=== PATIENT | female | born 1965 | race Two or more races ===

== ENCOUNTER 2021-06-11 09:00 | Inpatient (IN) | payer SELFPAY ==
[~2021-06-11] VITALS: Ht 162.6 cm; Wt 60.7 kg
[2021-06-11 09:35] LABS: Basophils # (auto) 0.1 10 ^3/uL (0-0.2); Basophils % (auto) 0.4 % (0.0-2.0); Eosinophils # (auto) 0 10 ^3/uL (0-0.8); Eosinophils % (auto) 0.1 % (0.0-7.0); Hematocrit 40.9 % (36.0-46.0); Hemoglobin 13.9 g/dL (12.2-16.2); Lymphocytes # (auto) 1.3 10 ^3/uL (0.4-5.4); Mean Corpuscular Hemoglobin 29.3 pg (28.0-32.0); Mean Corpuscular Volume 86.3 fL (80.0-100.0); Monocytes # (auto) 0.7 10 ^3/uL (0-1.3); Neutrophils # (auto) 12.4 10 ^3/uL (1.6-8.6); Neutrophils % (auto) 85.5 % (37.0-80.0); Red Blood Cells 4.75 10^6/uL (4.0-5.20); Red Cell Distribution Width 13.2 % (11.8-14.3); White Blood Cell 14.5 10^3/uL (4.4-10.8)
[2021-06-11 09:43] LABS: Calcium 9.8 mg/dL (8.5-10.1); Potassium 3.8 mmol/L (3.5-5.1)
[2021-06-11 09:47] LABS: BUN/Creatinine Ratio 14.5; Bilirubin, Total 0.8 mg/dL (0.2-1.0); Total Protein 8.1 g/dL (6.4-8.2)
[2021-06-11] MEDS ORDERED: cefTRIAXone 1GM/50ML D5W 50 ML IV ONE (11:45)
[2021-06-11] MEDS ORDERED: metroNIDAZOLE 500MG/100ML 100 ML IV ONE (11:45)
[2021-06-11] MEDS ORDERED: ONDANSETRON HCL 4 MG/2 ML VIAL IV ONE (13:15)
[2021-06-11] MEDS ORDERED: GOLYTELY 4L KIT PO ONE (13:45)
[2021-06-11] MEDS ORDERED: NITROGLYCERIN 0.4 MG SL TAB SL PRN (15:30)
[2021-06-11] MEDS ORDERED: MORPHINE SULFATE INJECTION 2 MG/2 ML SYRG IV PRN ×2 (15:30→17:00)
[2021-06-11] MEDS ORDERED: SODIUM CHLORIDE 0.9% 2,000 ML IV ONE (15:30)
[2021-06-11] MEDS ORDERED: CHOL20009 PO (15:42)
[2021-06-11] MEDS ORDERED: CIME1TAB7 PO (15:42)
[2021-06-11] MEDS ORDERED: CALC-179 PO (15:42)
[2021-06-11] MEDS ORDERED: ONDANSETRON HCL 4 MG/2 ML VIAL IV PRN (17:00)
[2021-06-11] MEDS ORDERED: DOCUSATE SOD 100 MG CAP PO PRN (17:00)
[2021-06-11] MEDS ORDERED: LORazepam 0.5 MG TAB PO PRN (17:00)
[2021-06-11] MEDS ORDERED: ALUM & MAG HYDROX-SIMETH LIQ(MAALOX) 30 ML PO PRN (17:00)
[2021-06-11 17:28] LABS: Cholesterol 188 mg/dL (< 200)
[2021-06-11 17:32] LABS: HDL Cholesterol 53 mg/dL (40-59); LDL Cholesterol 113 mg/dL (< 100); Triglycerides 104 mg/dL (< 150)
[2021-06-11] MEDS: ACETAMINOPHEN 325 MG TAB PO PRN (17:59)
[2021-06-11] MEDS: MORPHINE SULFATE INJECTION 2 MG/2 ML SYRG IV PRN (17:59)
[2021-06-11 20:06] LABS: Urine Bacteria NONE SEEN /hpf (None Seen); Urine Blood Negative /uL (Negative); Urine Mucus FEW (None Seen); Urine Specific Gravity 1.031 (1.001-1.035); Urine WBC 31 /hpf (0 - 5)
[2021-06-11 20:14] LABS: Amphetamine Screen, Urine NEGATIVE (NEGATIVE); Barbiturate Scree,Urine NEGATIVE (NEGATIVE); Benzodiazephine Screen, Urine NEGATIVE (NEGATIVE); Cannabinoid Screen, Urine NEGATIVE (NEGATIVE); Cocaine Screen, Urine NEGATIVE (NEGATIVE); Opiate Scree,Urine NEGATIVE (NEGATIVE); Phencyclidine Screen, Urine NEGATIVE (NEGATIVE)
[2021-06-11] MEDS: metroNIDAZOLE 500MG/100ML 100 ML IV SCH (22:31)
[2021-06-11] MEDS: FAMOTIDINE (10MG/ML) 2ML VL IV SCH (22:31)
[2021-06-11] MEDS: SODIUM CHLORIDE 0.9% 1,000 ML IV SCH (22:31)
[2021-06-12] MEDS: ACETAMINOPHEN 325 MG TAB PO PRN ×3 (00:06→19:00)
[2021-06-12] MEDS: MORPHINE SULFATE INJECTION 2 MG/2 ML SYRG IV PRN (00:55)
[2021-06-12 01:13] VITALS: BP 94/57
[2021-06-12] MEDS ORDERED: PNEUMOCOCCAL VACC POLYS 25 MCG/0.5 ML VIAL IM ONE (01:45)
[2021-06-12] MEDS ORDERED: INFLUENZA QUAD 2020-2021 0.5 ML SYRG IM ONE (01:45)
[2021-06-12 05:00] VITALS: BP 98/52
[2021-06-12] MEDS: metroNIDAZOLE 500MG/100ML 100 ML IV SCH ×3 (05:45→20:59)
[2021-06-12] MEDS ORDERED: GOLYTELY 4L KIT PO ONE (06:00)
[2021-06-12] MEDS ORDERED: SODIUM CHLORIDE LOCK 10 ML ONE (08:25)
[2021-06-12] MEDS ORDERED: diphenhdrAMINE HCL 50 MG/1 ML VL ONE (08:25)
[2021-06-12] MEDS ORDERED: SIMETHICONE 40 MG/0.6 ML ORAL DROP ONE (08:40)
[2021-06-12] MEDS: MIDAZOLAM HCL 5 MG/ML-1ML VIAL ONE ×2 (09:44→09:50)
[2021-06-12] MEDS: fentaNYL CITRATE 100 MCG/2 ML VL ONE ×2 (09:44→09:50)
[2021-06-12] MEDS: FAMOTIDINE (10MG/ML) 2ML VL IV SCH (11:07)
[2021-06-12] MEDS: cefTRIAXone 1GM/50ML D5W 50 ML IV SCH (11:07)
[2021-06-12] MEDS: SODIUM CHLORIDE 0.9% 1,000 ML IV SCH (11:07)
[2021-06-12 13:00] VITALS: BP 101/54
[2021-06-12] MEDS ORDERED: PANTOPRAZOLE 40 MG TAB PO ONE (13:00)
[2021-06-12] MEDS: HYDROcodone-ACET 5/325MG TAB PO PRN ×2 (16:08→20:28)
[2021-06-12 17:00] VITALS: BP 97/57
[2021-06-12] MEDS: CALCIUM CARB 500 MG CHEW TAB PO SCH (20:59)
[2021-06-12] MEDS: MAGNESIUM OXIDE 400 MG TAB PO SCH (20:59)
[2021-06-12 22:00] VITALS: BP 128/52
[2021-06-13] MEDS: SODIUM CHLORIDE 0.9% 1,000 ML IV SCH (02:20)
[2021-06-13 05:00] VITALS: BP 105/54
[2021-06-13 05:39] LABS: Basophils # (auto) 0 10 ^3/uL (0-0.2); Basophils % (auto) 0.2 % (0.0-2.0); Eosinophils # (auto) 0 10 ^3/uL (0-0.8); Hematocrit 33.5 % (36.0-46.0); Hemoglobin 11.6 g/dL (12.2-16.2); Lymphocytes # (auto) 0.6 10 ^3/uL (0.4-5.4); Lymphocytes % (auto) 9.3 % (10.0-50.0); Mean Corpuscular Hemoglobin 29.8 pg (28.0-32.0); Mean Corpuscular Hgb Conc. 34.6 g/dL (32.0-36.0); Mean Corpuscular Volume 86.3 fL (80.0-100.0); Monocytes # (auto) 0.4 10 ^3/uL (0-1.3); Monocytes % (auto) 5.7 % (0.0-12.0); Neutrophils # (auto) 5.4 10 ^3/uL (1.6-8.6); Neutrophils % (auto) 84.8 % (37.0-80.0); Red Blood Cells 3.88 10^6/uL (4.0-5.20); Red Cell Distribution Width 13.2 % (11.8-14.3); White Blood Cell 6.4 10^3/uL (4.4-10.8)
[2021-06-13 05:51] LABS: Albumin 2.5 g/dL (3.4-5.0); Calcium 8.3 mg/dL (8.5-10.1)
[2021-06-13 05:55] LABS: BUN/Creatinine Ratio 9.3; Bilirubin, Total 0.5 mg/dL (0.2-1.0); Total Protein 6.1 g/dL (6.4-8.2)
[2021-06-13 06:08] LABS: Potassium 2.6 mmol/L (3.5-5.1)
[2021-06-13] MEDS: metroNIDAZOLE 500MG/100ML 100 ML IV SCH ×3 (06:08→21:33)
[2021-06-13] MEDS: MORPHINE SULFATE INJECTION 2 MG/2 ML SYRG IV PRN ×2 (06:08→20:08)
[2021-06-13] MEDS: POTASSIUM CHL 20MEQ/50ML 50 ML IV SCH ×4 (07:08→13:07)
[2021-06-13 08:15] VITALS: BP 95/59
[2021-06-13 09:00] VITALS: BP 95/59
[2021-06-13] MEDS: CHOLECALCIFEROL (VITD3) 2,000 UNIT CAP/TAB PO SCH (09:52)
[2021-06-13] MEDS: CALCIUM CARB 500 MG CHEW TAB PO SCH ×2 (09:52→21:33)
[2021-06-13] MEDS: FAMOTIDINE (10MG/ML) 2ML VL IV SCH (09:52)
[2021-06-13] MEDS: MAGNESIUM OXIDE 400 MG TAB PO SCH ×2 (09:52→21:33)
[2021-06-13] MEDS: PANTOPRAZOLE 40 MG TAB PO SCH (09:53)
[2021-06-13] MEDS: cefTRIAXone 1GM/50ML D5W 50 ML IV SCH ×2 (09:54→10:02)
[2021-06-13] MEDS: ACETAMINOPHEN 325 MG TAB PO PRN (09:54)
[2021-06-13 13:00] VITALS: BP 98/60
[2021-06-13 16:38] VITALS: BP 116/69
[2021-06-13] MEDS: SOD CHL 0.45% WITH 20MEQ KCL 1,000 ML IV SCH (17:00)
[2021-06-13 22:00] VITALS: BP 121/74
[2021-06-14 05:00] VITALS: BP 108/65
[2021-06-14] MEDS: metroNIDAZOLE 500MG/100ML 100 ML IV SCH ×3 (06:25→21:12)
[2021-06-14 07:27] LABS: Basophils # (auto) 0 10 ^3/uL (0-0.2); Basophils % (auto) 0.2 % (0.0-2.0); Eosinophils # (auto) 0 10 ^3/uL (0-0.8); Hemoglobin 11.5 g/dL (12.2-16.2); Lymphocytes # (auto) 0.9 10 ^3/uL (0.4-5.4); Lymphocytes % (auto) 15.1 % (10.0-50.0); Mean Corpuscular Hemoglobin 30.2 pg (28.0-32.0); Mean Corpuscular Hgb Conc. 35.9 g/dL (32.0-36.0); Monocytes # (auto) 0.6 10 ^3/uL (0-1.3); Monocytes % (auto) 9.9 % (0.0-12.0); Neutrophils # (auto) 4.6 10 ^3/uL (1.6-8.6); Neutrophils % (auto) 74.8 % (37.0-80.0); Red Blood Cells 3.81 10^6/uL (4.0-5.20); Red Cell Distribution Width 13.1 % (11.8-14.3); White Blood Cell 6.2 10^3/uL (4.4-10.8)
[2021-06-14 07:34] VITALS: BP 115/68
[2021-06-14 07:57] LABS: Albumin 2.3 g/dL (3.4-5.0); Bilirubin, Total 0.3 mg/dL (0.2-1.0); Calcium 8.1 mg/dL (8.5-10.1); Total Protein 5.9 g/dL (6.4-8.2)
[2021-06-14 09:00] VITALS: BP 115/68
[2021-06-14] MEDS: MAGNESIUM OXIDE 400 MG TAB PO SCH ×2 (09:54→21:11)
[2021-06-14] MEDS: FAMOTIDINE (10MG/ML) 2ML VL IV SCH (09:54)
[2021-06-14] MEDS: NITROGLYCERIN 0.4 MG SL TAB SL PRN ×3 (09:54→10:20)
[2021-06-14] MEDS: PANTOPRAZOLE 40 MG TAB PO SCH (09:54)
[2021-06-14] MEDS: CALCIUM CARB 500 MG CHEW TAB PO SCH ×2 (09:54→21:12)
[2021-06-14] MEDS: CHOLECALCIFEROL (VITD3) 2,000 UNIT CAP/TAB PO SCH (09:54)
[2021-06-14] MEDS: Ensure HIGH Protein Chocolate 8oz Bottle PO SCH ×2 (12:00→18:00)
[2021-06-14 13:10] VITALS: BP 101/57
[2021-06-14] MEDS: SOD CHL 0.45% WITH 20MEQ KCL 1,000 ML IV SCH (14:22)
[2021-06-14] MEDS: ACETAMINOPHEN 325 MG TAB PO PRN (14:29)
[2021-06-14 16:55] VITALS: BP 103/63
[2021-06-14 22:00] VITALS: BP 108/67
[2021-06-15] VITALS (7 sets, daily range): BP systolic 91–120; BP diastolic 58–70
[2021-06-15 05:26] LABS: Basophils # (auto) 0 10 ^3/uL (0-0.2); Basophils % (auto) 0.3 % (0.0-2.0); Eosinophils # (auto) 0 10 ^3/uL (0-0.8); Eosinophils % (auto) 0.6 % (0.0-7.0); Hematocrit 33.1 % (36.0-46.0); Hemoglobin 11.9 g/dL (12.2-16.2); Lymphocytes # (auto) 1.5 10 ^3/uL (0.4-5.4); Lymphocytes % (auto) 22.9 % (10.0-50.0); Mean Corpuscular Hemoglobin 29.8 pg (28.0-32.0); Mean Corpuscular Volume 82.8 fL (80.0-100.0); Monocytes # (auto) 0.9 10 ^3/uL (0-1.3); Monocytes % (auto) 13.6 % (0.0-12.0); Neutrophils % (auto) 62.6 % (37.0-80.0); Red Cell Distribution Width 13.2 % (11.8-14.3); White Blood Cell 6.4 10^3/uL (4.4-10.8)
[2021-06-15] MEDS: metroNIDAZOLE 500MG/100ML 100 ML IV SCH ×3 (05:43→21:19)
[2021-06-15 05:56] LABS: Albumin 2.3 g/dL (3.4-5.0); Anion Gap 8 (5-15); Blood Urea Nitrogen 9 mg/dL (7-18); Calcium 8.2 mg/dL (8.5-10.1); Carbon Dioxide 22 mmol/L (21-32); Chloride 110 mmol/L (98-107); Glucose 107 mg/dL (74-106); Sodium 140 mmol/L (136-145)
[2021-06-15 06:03] LABS: Alanine Aminotransferase 31 U/L (13-56); Alkaline Phosphatase 43 U/L (45-117); Aspartate Aminotransferase 25 U/L (15-37); BUN/Creatinine Ratio 13.4; Bilirubin, Total 0.4 mg/dL (0.2-1.0); GFR African American 117 mL/min; GFR Non-African American 97 mL/min; Total Protein 5.9 g/dL (6.4-8.2)
[2021-06-15] MEDS: Ensure HIGH Protein Chocolate 8oz Bottle PO SCH ×3 (07:51→18:00)
[2021-06-15] MEDS: SOD CHL 0.45% WITH 20MEQ KCL 1,000 ML IV SCH (09:00)
[2021-06-15] MEDS: PANTOPRAZOLE 40 MG TAB PO SCH (11:15)
[2021-06-15] MEDS: FAMOTIDINE (10MG/ML) 2ML VL IV SCH (11:15)
[2021-06-15] MEDS: CALCIUM CARB 500 MG CHEW TAB PO SCH ×2 (11:15→20:54)
[2021-06-15] MEDS: MAGNESIUM OXIDE 400 MG TAB PO SCH ×2 (11:15→20:55)
[2021-06-15] MEDS: CHOLECALCIFEROL (VITD3) 2,000 UNIT CAP/TAB PO SCH (11:15)
[2021-06-15] MEDS: MORPHINE SULFATE INJECTION 2 MG/2 ML SYRG IV PRN (11:16)
[2021-06-15] MEDS: cefTRIAXone 1GM/50ML D5W 50 ML IV SCH (11:16)
[2021-06-15] MEDS ORDERED: POTASSIUM CHL 20 Meq TABLET PO ONE (11:30)
[2021-06-15] MEDS: ACETAMINOPHEN 325 MG TAB PO PRN (18:54)
[2021-06-16] MEDS: SOD CHL 0.45% WITH 20MEQ KCL 1,000 ML IV SCH ×2 (00:29→11:39)
[2021-06-16 05:00] VITALS: BP 112/73
[2021-06-16] MEDS: metroNIDAZOLE 500MG/100ML 100 ML IV SCH ×2 (05:25→14:00)
[2021-06-16 05:29] LABS: Hematocrit 33.5 % (36.0-46.0); Hemoglobin 11.8 g/dL (12.2-16.2)
[2021-06-16 05:59] LABS: Potassium 3.2 mmol/L (3.5-5.1)
[2021-06-16 09:12] VITALS: BP 108/68
[2021-06-16] MEDS: cefTRIAXone 1GM/50ML D5W 50 ML IV SCH (09:30)
[2021-06-16] MEDS: CALCIUM CARB 500 MG CHEW TAB PO SCH (09:30)
[2021-06-16] MEDS: MAGNESIUM OXIDE 400 MG TAB PO SCH (09:30)
[2021-06-16] MEDS: PANTOPRAZOLE 40 MG TAB PO SCH (09:30)
[2021-06-16] MEDS: CHOLECALCIFEROL (VITD3) 2,000 UNIT CAP/TAB PO SCH (09:30)
[2021-06-16] MEDS: Ensure HIGH Protein Chocolate 8oz Bottle PO SCH ×2 (09:35→14:24)
[2021-06-16] MEDS: FAMOTIDINE (10MG/ML) 2ML VL IV SCH (10:00)
[2021-06-16] MEDS ORDERED: POTASSIUM CHL 20 Meq TABLET PO ONE (10:15)
[2021-06-16] MEDS ORDERED: METR500T PO (10:50)
[2021-06-16] MEDS ORDERED: LEVO500T31 PO (10:50)
[2021-06-16 13:12] VITALS: BP 103/68
[2021-06-16 14:35] VITALS: BP 103/68
== END 2021-06-16 16:49 | disposition home or self-care (01) | DRG 393 ==
LOC: ER 09:00 → TELE 15:23 → TELE-WESTW 23:45 → WEST WING 06-16 10:10
PROVIDERS: ADMIT Hospitalist; ATTEND Internal Medicine
PROC: 0DBF8ZX Excision of Right Large Intestine, Via Natural or Artificial Opening Endoscopic, Diagnostic (ICD-10-PCS; principal; 2021-06-12 09:42)
DX: K55.9 Vascular disorder of intestine, unspecified (principal); N17.0 Acute kidney failure with tubular necrosis; E44.0 Moderate protein-calorie malnutrition; D72.829 Elevated white blood cell count, unspecified; N18.2 Chronic kidney disease, stage 2 (mild); K21.9 Gastro-esophageal reflux disease without esophagitis; E11.22 Type 2 diabetes mellitus with diabetic chronic kidney disease; N18.9 Chronic kidney disease, unspecified; E11.65 Type 2 diabetes mellitus with hyperglycemia; Z20.822 Contact with and (suspected) exposure to COVID-19; E87.6 Hypokalemia; Z90.710 Acquired absence of both cervix and uterus; Z68.24 Body mass index [BMI] 24.0-24.9, adult
CPT/HCPCS: 36415; 74176; 80053; 80061; 80307; 81001; 82150; 83036; 83605; 83690; 83735; 84132; 84443; 84484; 85014; 85018; 85025; 85610; 87040; 87086; 87426; 93005; 96365; 96367; 96375; 97163; G0378; J0696; J2250; J2405; J3490